=== PATIENT | male | born 1980 | race African-American/Black ===

== ENCOUNTER 2022-06-08 18:59 | Emergency (ER) | payer MEDICAID ==
[~2022-06-08] VITALS: Ht 165.1 cm; Wt 58.0 kg
[2022-06-08 18:59] VITALS: BP 122/84
[2022-06-08] MEDS ORDERED: MUPI1OIN5 TP (22:26)
[2022-06-08] MEDS ORDERED: CLIN-142 PO (22:26)
== END 2022-06-08 22:47 | disposition home or self-care (01) ==
LOC: EMS 19:00
DX: L03.115 Cellulitis of right lower limb (principal)
CPT/HCPCS: 99283; Z7502